=== PATIENT | female | born 1995 | race Caucasian/White ===

== ENCOUNTER 2016-09-25 15:38 | Outpatient (CLI) | payer BC ==
--- NOTE | 2016-09-25 16:28 | Ultrasound Report ---
RIGHT UPPER QUADRANT ULTRASOUND: The gallbladder is sonolucent with no evidence of stones, polyps or wall thickening. The common duct is normal in caliber. The pancreas, right renal contour, parenchyma and hepatic parenchyma appear normal. IMPRESSION: Normal right upper quadrant ultrasound.
== END 2016-09-25 15:39 | disposition home or self-care (01) ==
LOC: US 15:38
DX: R11.2 Nausea with vomiting, unspecified (principal)
CPT/HCPCS: 76700; 76705